=== PATIENT | male | born 1995 | race Caucasian/White ===

== ENCOUNTER 2017-01-12 12:36 | Emergency (ER) | payer OTHER ==
[~2017-01-12] VITALS: Ht 180.3 cm; Wt 103.6 kg
[~2017-01-12 12:36] MED LIST: EPP3/2 IM
[2017-01-12 12:40] VITALS: TEMP 36.7; Ht 180.3 cm; Wt 103.6 kg
[2017-01-12 13:28] VITALS: O2SAT 99
[2017-01-12] MEDS ORDERED: ONDANSETRON INJ 2 MG/ML 2 ML VIAL IV STA (13:41)
[2017-01-12] MEDS ORDERED: ASPIRIN 324 MG CHEW PO STA (13:41)
[2017-01-12] MEDS ORDERED: MoRPHine SULFATE 4 MG/ML 1 ML CARP\\VIAL IV STA (13:41)
--- NOTE | 2017-01-12 13:47 | EMERGENCY ROOM VISIT NOTE ---
History First contact with patient: 13:30 Chief Complaint: CHEST PAIN Stated Complaint: CHEST PAIN,SOB Nursing Triage Summary: chest pain since yesterday started while exercising feels like someone squeezing his ribs pain worse with physical exertion History of Present Illness The patient is a 21 year old male who presents to the Emergency Room via private vehicle accompanied by female with complaints of "chest pain, shortness of breath". The patient states that yesterday, around 10:30 AM, he was working out by performing sprints when he developed a bandlike chest pressure around the anterior chest, increased heart rate and a pounding in the chest. This developed most prominently after exercising. He states that he relaxed and the pain went away. He states he did not take much of it, but today with walking up steps he developed a sensation of being winded, and his heart began pounding again. He states that even walking from the triage desk to his bed he developed a bandlike pressure the rates as an 8/10. Currently while laying in the bed at rest his pain in the anterior chest as a 5/10. He denies any history of CA, history of blood clots, history of smoking, history of hypertension. There is no history of sudden in the family. He has been physically active in the past without experiencing any of these symptoms. He states that the chest pain is exclusively reproducible with exertion. Review of Systems A complete 10-point Review of Systems was discussed with the patient, with pertinent positives and negatives listed in the History of Present Illness. All remaining Review of Systems questions can be considered negative unless otherwise specified. Past Medical/Surgical History Medical Problems: (1) wrist reset from fracture Family History FH: heart disease Social History Smoking Status: Never Smoker Alcohol Use: none Housing Status: lives with family Occupation Status: student Current/Historical Medications Scheduled Epinephrine (Epipen), 0.3 MG IM UD Scheduled PRN Prednisone (Prednisone), 0 PO UD PRN for SWELLING Allergies Coded Allergies: No Known Allergies (Unverified , UNKNOWN, 01/12/17) Physical Exam Vital Signs Date Time Temp Pulse Resp B/P (MAP) Pulse Ox O2 Delivery O2 Flow Rate FiO2 01/12/17 18:54 86 18 133/79 98 01/12/17 17:45 89 01/12/17 17:15 87 20 142/77 98 Room Air 01/12/17 15:06 85 22 132/64 96 Room Air 01/12/17 13:38 85 01/12/17 13:29 99 Room Air 01/12/17 13:28 78 18 135/72 99 Room Air 01/12/17 13:28 99 Room Air 01/12/17 12:40 36.7 87 18 142/83 95 Room Air Physical Exam VITAL SIGNS - Vital signs and nursing notes were reviewed. Patient is afebrile , hypertensive at 142/83, nontoxic tachycardic and is saturating on room air at 95%. GENERAL -21-year-old male appearing his stated age who is in no acute distress. Communicates well with provider and answers questions appropriately. SKIN - Without rashes. No petechial rashes. HEAD - NC/AT. EYES - PERRL with EOMI bilaterally. Sclera anicteric. Palpebral conjunctiva pink and moist with no injection noted. EARS - No deformities of external structures noted on gross examination bilaterally. No pain elicited with palpation of the tragus bilaterally. External auditory canals without discharge or otorrhea. Tympanic membranes pearly najera without retraction or bulging. No fluid or purulent material visualized behind the TM. Handle of malleus, umbo, cone of light, pars tensa/ flaccid all easily visualized. NOSE - Midline and without cyanosis. No epistaxis or purulent drainage noted. Septum midline without deviation or septal hematoma noted. MOUTH/OROPHARYNX - Without perioral cyanosis. Buccal mucosa pink and moist and without leukoplakia. Tongue midline with equal elevation of palate bilaterally. No tonsillar hypertrophy, erythema, or exudates noted. [] dentition noted. NECK - Neck with FROM. Supple to palpation. No lymphadenopathy noted. No nuchal rigidity. No meningismus. LUNGS - Chest wall symmetric without accessory muscle use, intercostals retractions, or central cyanosis. Normal vesicular breath sounds CTA B/L. No wheezes, rales, or rhonchi appreciated. CARDIAC - RRR with S1/S2. No murmur, rubs, or gallops appreciated. There is minimal producible tenderness to the patient of the anterior chest. ABDOMEN - Abdominal contour without pulsations or visible masses. BS normoactive all four quadrants. No tenderness, palpable masses, hepatosplenomegaly, or ascites noted. EXTREMITIES - No clubbing or peripheral cyanosis. No pretibial edema present. +5 /5 strength noted in UE/LE bilaterally. NEUROLOGIC - Cranial nerves II through XII grossly intact. PSYCH - Pt is very pleasant and interacts well with examiner. Medical Decision & Procedures ER Provider Diagnostic Interpretation: CHEST ONE VIEW PORTABLE CLINICAL HISTORY: Atypical chest pain. Shortness of breath. COMPARISON STUDY: 05/17/2009 FINDINGS: The cardiac and mediastinal contours are normal. There is no evidence of focal pulmonary consolidation. There is no evidence of failure. No pleural effusions are visualized.[ IMPRESSION: No active disease in the chest. Electronically signed by: Esteban Holliday M.D. 01/12/2017 2:10 PM Dictated Date/Time: 01/12/2017 2:10 PM Laboratory Results 01/12/17 13:35 Red Blood Count 5.17, Mean Corpuscular Volume 84.5, Mean Corpuscular Hemoglobin 31.1, Mean Corpuscular Hemoglobin Concent 36.8, Mean Platelet Volume 10.2, Neutrophils (%) (Auto) 68.0, Lymphocytes (%) (Auto) 20.4, Monocytes (%) (Auto) 10.9, Eosinophils (%) (Auto) 0.5, Basophils (%) (Auto) 0.1, Neutrophils # (Auto ) 6.61, Lymphocytes # (Auto) 1.98, Monocytes # (Auto) 1.06, Eosinophils # (Auto ) 0.05, Basophils # (Auto) 0.01 01/12/17 13:35 Test 01/12/17 13:35 01/12/17 13:53 01/12/17 14:25 01/12/17 18:05 White Blood Count 9.72 K/uL (4.8-10.8) Red Blood Count 5.17 M/uL (4.7-6.1) Hemoglobin 16.1 g/dL (14.0-18.0) Hematocrit 43.7 % (42-52) Mean Corpuscular Volume 84.5 fL (80-100) Mean Corpuscular Hemoglobin 31.1 pg (25-34) Mean Corpuscular Hemoglobin Concent 36.8 g/dl (32-36) Platelet Count 194 K/uL (130-400) Mean Platelet Volume 10.2 fL (7.4-10.4) Neutrophils (%) (Auto) 68.0 % Lymphocytes (%) (Auto) 20.4 % Monocytes (%) (Auto) 10.9 % Eosinophils (%) (Auto) 0.5 % Basophils (%) (Auto) 0.1 % Neutrophils # (Auto) 6.61 K/uL (1.4-6.5) Lymphocytes # (Auto) 1.98 K/uL (1.2-3.4) Monocytes # (Auto) 1.06 K/uL (0.11-0.59) Eosinophils # (Auto) 0.05 K/uL (0-0.5) Basophils # (Auto) 0.01 K/uL (0-0.2) RDW Standard Deviation 38.4 fL (36.4-46.3) RDW Coefficient of Variation 12.5 % (11.5-14.5) Immature Granulocyte % (Auto) 0.1 % Immature Granulocyte # (Auto) 0.01 K/uL (0.00-0.02) Erythrocyte Sedimentation Rate 6 mm/hr (0-14) Prothrombin Time 11.4 SECONDS (9.0-12.0) Prothromb Time International Ratio 1.1 (0.9-1.1) Activated Partial Thromboplast Time 26.0 SECONDS (21.0-31.0) Partial Thromboplastin Ratio 1.0 Anion Gap 9.0 mmol/L (3-11) Est Creatinine Clear Calc Drug Dose 144.3 ml/min Estimated GFR () 125.0 Estimated GFR (Non- 107.9 BUN/Creatinine Ratio 13.5 (10-20) Calcium Level 9.4 mg/dl (8.5-10.1) Magnesium Level 2.3 mg/dl (1.8-2.4) Total Bilirubin 0.9 mg/dl (0.2-1) Aspartate Amino Transf (AST/SGOT) 19 U/L (15-37) Alanine Aminotransferase (ALT/SGPT) 35 U/L (12-78) Alkaline Phosphatase 116 U/L (45-117) Total Creatine Kinase 369 U/L (39-308) Creatine Kinase MB < 0.5 ng/ml (0.5-3.6) Creatine Kinase MB Ratio (0-3.0) C-Reactive Protein 0.94 mg/dl (0-0.29) Total Protein 8.2 gm/dl (6.4-8.2) Albumin 4.5 gm/dl (3.4-5.0) Globulin 3.7 gm/dl (2.5-4.0) Albumin/Globulin Ratio 1.2 (0.9-2) Lipase 74 U/L (73-393) Thyroid Stimulating Hormone (TSH) 0.951 uIu/ml (0.300-4.500) Lyme Disease IgG Antibody NEG (NEG) Lyme Disease IgM Antibody NEG (NEG) Bedside D-Dimer 431 ng/mlFEU (0-450) KS-Hqa-U-Type Natriuretic Peptide < 15 pg/ml (0-450) Urine Color ORANGE Urine Appearance CLEAR (CLEAR) Urine pH 5.0 (4.5-7.5) Urine Specific [place] 1.022 (1.000-1.030) Urine Protein NEG (NEG) Urine Glucose (UA) NEG (NEG) Urine Ketones TRACE (NEG) Urine Occult Blood NEG (NEG) Urine Nitrite NEG (NEG) Urine Bilirubin NEG (NEG) Urine Urobilinogen NEG (NEG) Urine Leukocyte Esterase NEG (NEG) Bedside Troponin I < 0.030 ng/ml (0-0.045) Medications Administered Medications (Trade) Dose Ordered Sig/Abby Route Start Time Stop Time Status Last Admin Dose Admin Morphine Sulfate (MoRPHine SULFATE INJ) 4 mg NOW STAT IV 01/12/17 13:41 01/12/17 13:44 DC 01/12/17 13:58 4 MG Ondansetron HCl (Zofran Inj) 4 mg NOW STAT IV 01/12/17 13:41 01/12/17 13:44 DC 01/12/17 13:56 4 MG Aspirin (Aspirin Chew) 324 mg NOW STAT PO 01/12/17 13:41 01/12/17 13:44 DC 01/12/17 13:56 324 MG Sodium Chloride 1,000 ml @ 999 mls/hr Q1H1M STAT IV 01/12/17 17:25 01/12/17 18:25 DC 01/12/17 17:36 999 MLS/HR Medical Decision Patient was seen and evaluated as above. After obtaining a thorough history and physical examination IV access was initiated and the above workup was performed. Bedside EKG was obtained and reveals normal sinus rhythm, concern for LVH. No evidence of CA at this time. CBC reveals no leukocytosis or anemia ESR was at 6. Coags normal. Point of care d-dimer normal. CMP reveals normal electrolytes, creatinine 1, total CK 369, troponin negative 3, C- reactive protein slightly high 0.94, TSH normal. Urine reveals trace ketones, otherwise unremarkable. Lyme disease negative. Chest x-ray unremarkable. Vital signs stable. I did discuss the case with my attending, and the decision was made to attempt to obtain a bedside echocardiogram. I discussed the case with Dr. Salcedo, who kindly agreed to an echocardiogram. Please refer to further documentation within the patient's chart regarding the findings. Essentially negative echocardiogram. With a negative d-dimer, negative troponin 3, negative EKG other than slight concern for LVH which was ruled out with the echo I believe the patient is stable for management in the outpatient setting. The patient prefers to be discharged rather than staying in the hospital which I believe is reasonable. He was provided the number which she is to follow-up for regarding today's visit. He is to take it easy over the next few days, and to limit his exercise, and perform no strenuous activity. He was given strict instructions upon this including a work no. He was educated upon worrisome symptoms which to return, had questions prior discharge , and was discharged home in good condition. Patient was found to experience some bigeminy later in his stay, but he did not develop any acute rhythms. In evaluation treatment this patient following differential diagnoses were entertained: HOCM, CA, PE, among others. Impression Primary Impression: Chest wall pain Departure Information Dispostion Home / Self-Care Condition GOOD Referrals No Doctor, Assigned (PCP) Jose De Jesus Salcedo M.D. Patient Instructions My [facility] Additional Instructions You have been treated in the Emergency Department your chest pain laboratory results and imaging studies have ruled out any emergent causes for your abdominal pain which would warrant admission or surgery. For pain control, you can use the following [id number] medicines (if >12 yo): - Regular strength (325mg/tab) Tylenol (acetaminophen) 2 tabs every 4-6 hours as needed. Do not exceed 12 tablets in a 24 hour period. Avoid taking more than 3 grams (3000 mg) of Tylenol per day. This includes any other sources of acetaminophen you may take on a regular basis. - Regular strength (200 mg/tab) Advil (ibuprofen) 1-2 tabs every 4-6 hours as needed. Do not exceed a dose of 3200 mg per day. Drink plenty of water and stay well hydrated. As with any trip to the Emergency Department, you should follow-up with your Primary Care Provider from today's visit. Please follow up regarding your kidney function. Please call the online advertising manager number listed above schedule follow-up. Until you are seen by them please do not engage in any strenuous activity. Return to the emergency department if your symptoms persist despite treatment plan outlined above or if the following symptoms occur: increased fevers, chills , worsening nausea/vomiting, blood in your stool or urine. Please return to the emergency department with any new/concerning symptoms.
[2017-01-12 14:00] LABS: BASO % 0.1 %; BASO ABS # 0.01 K/uL (0-0.2); COMPLETE YES; EOS % 0.5 %; HEMATOCRIT 43.7 % (42-52); IG% 0.1 %; LYMPH % 20.4 %; LYMPH ABS # 1.98 K/uL (1.2-3.4); MEAN CELL VOLUME 84.5 fL (80-100); MEAN CORPUSCULAR HEMOGLOBIN 31.1 pg (25-34); MEAN CORPUSCULAR HGB CONC 36.8 g/dl (32-36); MEAN PLATELET VOLUME 10.2 fL (7.4-10.4); MONO % 10.9 %; PLATELET COUNT 194 K/uL (130-400); RED BLOOD COUNT 5.17 M/uL (4.7-6.1); WHITE BLOOD COUNT 9.72 K/uL (4.8-10.8)
[2017-01-12 14:08] LABS: INR 1.1 (0.9-1.1); PROTHROMBIN TIME (PATIENT) 11.4 SECONDS (9.0-12.0)
[2017-01-12 14:12] LABS: ALT/SGPT 35 U/L (12-78); BLOOD UREA NITROGEN 14 mg/dl (7-18); BUN/CREATININE RATIO 13.5 (10-20); CALCIUM 9.4 mg/dl (8.5-10.1); CARBON DIOXIDE 27 mmol/L (21-32); CHLORIDE 105 mmol/L (98-107); GLUCOSE 82 mg/dl (70-99); MAGNESIUM 2.3 mg/dl (1.8-2.4); POTASSIUM 3.6 mmol/L (3.5-5.1); SODIUM 141 mmol/L (136-145)
--- NOTE | 2017-01-12 14:12 | DIAGNOSTIC IMAGING REPORT ---
CHEST ONE VIEW PORTABLE CLINICAL HISTORY: Atypical chest pain. Shortness of breath. COMPARISON STUDY: 05/17/2009 FINDINGS: The cardiac and mediastinal contours are normal. There is no evidence of focal pulmonary consolidation. There is no evidence of failure. No pleural effusions are visualized.[ IMPRESSION: No active disease in the chest. Electronically signed by: Esteban Holliday M.D. 01/12/2017 2:10 PM Dictated Date/Time: 01/12/2017 2:10 PM
[2017-01-12 14:16] LABS: POINT OF CARE PRO-BNP < 15 pg/ml (0-450); POINT OF CARE TROPONIN I < 0.030 ng/ml (0-0.045)
[2017-01-12 14:23] LABS: ALB/GLOB RATIO 1.2 (0.9-2); ALKALINE PHOSPHATASE 116 U/L (45-117); AST/SGOT 19 U/L (15-37); THYROID STIMULATING HORMONE 0.951 uIu/ml (0.300-4.500)
[2017-01-12 14:36] LABS: URINE APPEARANCE CLEAR (CLEAR); URINE BILIRUBIN NEG (NEG); URINE COLOR ORANGE; URINE NITRITE NEG (NEG); URINE SPECIFIC GRAVITY 1.022 (1.000-1.030); UROBILINOGEN NEG (NEG); ZZUR CULT IF INDIC CLEAN CATCH NO
[2017-01-12 14:49] LABS: MANUAL MICROSCOPIC REQUIRED? NO; REVIEW REQ? NO
[2017-01-12 14:51] LABS: LYME DISEASE AB IGG NEG (NEG); LYME DISEASE AB IGM NEG (NEG)
[2017-01-12] MEDS ORDERED: PRED10TA PO (15:09)
[2017-01-12 15:56] LABS: C-REACTIVE PROTEIN 0.94 mg/dl (0-0.29)
[2017-01-12] MEDS ORDERED: SODIUM CHLORIDE 0.9% 1000ML 1,000 ML IV STA (17:25)
--- NOTE | 2017-01-12 17:37 | ECHOCARDIOGRAM REPORT ---
*NOTICE TO RECEIVING [employer] This information is strictly Confidential and protected under [place] law. [place] law prohibits you from making any further disclosure of this information unless further disclosure is expressly permitted by the written consent of the person to whom it pertains or is authorized by law. A general authorization for the release of medical or other information is not sufficient for this purpose. Hospital accepts no responsibility if the information is made available to any other person, INCLUDING THE PATIENT. Interpretation Summary * Name: DENIA LOPEZ Study Date: 01/12/2017 04:09 PM BP: 132/64 mmHg * Patient Location: ED-A2 HR: 85 * : 1995 (M/d/yyyy) Gender: Male Height: 71 in * Age: 21 yrs Ethnicity: CA Weight: 220 lb * Ordering Physician: Jose De Jesus Salcedo MD, [facility] * Performed By: Effie Davison RDCS * * Reason For Study: Chest pain, shortness of breath * BSA: 2.2 m2 * -- Conclusions -- * The left ventricle is normal in size. * There is normal left ventricular wall thickness. * Left ventricular systolic function is normal. * The left ventricular wall motion is normal. * Ejection Fraction = 60-65%. * The aortic root is normal size. * There is no pericardial effusion. Procedure Details * A two-dimensional transthoracic echocardiogram with M-mode and Doppler was performed. * A complete two-dimensional transthoracic echocardiogram was performed (2D, M-mode, Doppler and color flow Doppler). Left Ventricle * The left ventricle is normal in size. * There is normal left ventricular wall thickness. * Echo findings are not consistent with left ventricular outflow obstruction. * Left ventricular systolic function is normal. * Ejection Fraction = 60-65%. * The left ventricular wall motion is normal. Right Ventricle * The right ventricle is normal in size and function. Atria * The left atrial size is normal. * Right atrial size is normal. * No ASD detected; PFO is not assessed. Mitral Valve * The mitral valve is normal. * There is no mitral valve stenosis. * There is trace mitral regurgitation. Tricuspid Valve * The tricuspid valve is normal. * There is no tricuspid stenosis. * There is trace tricuspid regurgitation. * Doppler findings do not suggest pulmonary hypertension. Aortic Valve * The aortic valve is trileaflet. * No hemodynamically significant valvular aortic stenosis. * No aortic regurgitation is present. Pulmonic Valve * The pulmonic valve is not well visualized. Great Vessels * The aortic root is normal size. Pericardium/Pleural * There is no pericardial effusion. Great Vessels * Normal inferior vena cava diameter and respiratory variation suggests normal central venous pressure. MMode 2D Measurements and Calculations IVSd 0.82 cm LVIDd 5.3 cm LVIDs 3.7 cm LVPWd 0.77 cm IVS/LVPW 1.1 FS 29.5 % EDV(Teich) 135.1 ml ESV(Teich) 59.3 ml EF(Teich) 56.1 % EDV(cubed) 148.5 ml ESV(cubed) 52.0 ml EF(cubed) 65.0 % LV mass(C)d 148.2 grams LV mass(C)dI 67.5 grams/m\S\2 SV(Teich) 75.7 ml SI(Teich) 34.5 ml/m\S\2 SV(cubed) 96.5 ml SI(cubed) 43.9 ml/m\S\2 ACS 2.7 cm LA dimension 2.7 cm asc Aorta Diam 2.6 cm Doppler Measurements and Calculations MV E max arnoldo 106.2 cm/sec MV A max arnoldo 88.3 cm/sec MV E/A 1.2 MV dec time 0.18 sec Ao V2 max 170.4 cm/sec Ao max PG 11.6 mmHg Ao max PG (full) 10.2 mmHg LV V1 max PG 1.4 mmHg LV V1 max 58.7 cm/sec PA V2 max 133.0 cm/sec PA max PG 7.1 mmHg PA acc slope 945.2 cm/sec\S\2 PA acc time 0.11 sec PA pr(Accel) 28.3 mmHg
[2017-01-12 18:54] VITALS: BP 133/79; PULSE 86; O2SAT 98
== END 2017-01-12 18:54 | disposition home or self-care (01) ==
LOC: C.EDB 12:37 → C.EDA 18:54
DX: R07.89 Other chest pain (principal); R06.02 Shortness of breath